=== PATIENT | female | born 1995 ===

== ENCOUNTER 2017-02-04 02:58 | Observation (INO) | payer MEDICAID, OTHER ==
--- NOTE | 2017-02-04 05:10 | ED PDOC ---
HPI: Psych/Substance Abuse Time Seen by Provider: 02/04/17 03:09 Chief Complaint (Nursing): Alcohol Ingestion Chief Complaint (Provider): Alcohol Ingestion ED Caveat: Intoxicated History Per: EMS History/Exam Limitations: no limitations Onset/Duration Of Symptoms: Hrs Current Symptoms Are (Timing): Still Present Modifying Factor(s): Alcohol Additional Complaint(s): 3:09 Deysi Kam is a 21 year old female that was brought into the ED by EMS for public alcohol intoxication. According to EMS, patient was "drinking at bars ," and now states that she wants to go home," and provides no further complaints. Patient unable to provided further medical history secondary to intoxication. Past Medical History Reviewed: Historical Data, Nursing Documentation, Vital Signs Vital Signs: Last Vital Signs Temp 98.2 F 02/04/17 03:11 Pulse 125 H 02/04/17 04:58 Resp 20 02/04/17 04:58 BP 111/73 02/04/17 04:58 Pulse Ox 99 02/04/17 04:58 - Medical History PMH: No Chronic Diseases - Family History Family History: States: Unknown Family Hx - Allergies Allergies/Adverse Reactions: Allergies Allergy/AdvReac Type Severity Reaction Status Date / Time No Known Allergies Allergy Verified 01/06/15 18:36 Review of Systems Review Of Systems: ROS cannot be obtained secondary to pt's inabilty to answer questions. Physical Exam - Reviewed Nursing Documentation Reviewed: Yes Vital Signs Reviewed: Yes - Physical Exam Appears: Positive for: Non-toxic, No Acute Distress (pt. is ocmfortable) Skin: Positive for: Normal Color, Warm, Dry Eye Exam: Positive for: Normal appearance, EOMI, PERRL Cardiovascular/Chest: Positive for: Bradycardia (rate is low). Negative for: Regular Rate, Rhythm, Murmur Respiratory: Positive for: Normal Breath Sounds. Negative for: Respiratory Distress Neurologic/Psych: Positive for: Alert, Oriented, Gait (unsteady) - ECG O2 Sat by Pulse Oximetry: 99 (RA) Pulse Ox Interpretation: Normal Medical Decision Making Medical Decision Makin:57 Initial Impression: Alcohol Ingestion Initial Plan: * 2 mg Ativan IM * Haldol 5 mg IM 4:03 Patient will be placed in ED Obs until reaching clinical sobriety. Patient was given Ativan because she appeared agitated. Scribe Attestation: Documented by Sienna Quan, acting as a scribe for Rossy Mendez MD. Provider Scribe Attestation: All medical record entries made by the Scribe were at my direction and personally dictated by me. I have reviewed the chart and agree that the record accurately reflects my personal performance of the history, physical exam, medical decision making, and the department course for this patient. I have also personally directed, reviewed, and agree with the discharge instructions and disposition. ED OBSERVATION Date of observation admission: 02/04/17 Time of observation admission: 04:03 - Goals of Observation Goals of observation are:: 4:06 Patient will be placed in ED Obs until reaching clinical sobriety. Disposition - Clinical Impression Clinical Impression: Alcohol ingestion - Patient ED Disposition Is Patient to be Admitted: Transfer of Care - Disposition Disposition: Transfer of Care Disposition Time: 07:00 Condition: FAIR Patient Signed Over To: Serge Crawley Handoff Comments: Transfer pending clinical sobriety
--- NOTE | 2017-02-04 07:31 | ED PDOC ---
- ECG O2 Sat by Pulse Oximetry: 99 (RA) Pulse Ox Interpretation: Normal - Progress ED Course And Treament: pt has no signs of clinical intoxication. has no complaints no si/hi/ hallucination. ambulating with a steady gait. advise to abstain from etoh Re-evaluation Time: 11:56 Condition: Improved Medical Decision Making Medical Decision Making: Receivign Sign Out: Patient signed out to me by Dr. Mendez at 0700 pending clinical sobriety. Scribe Attestation: Documented by Sandra Modi acting as a scribe for Serge Crawley MD. Provider Attestation: All medical record entries made by the Scribe were at my direction and personally dictated by me. I have reviewed the chart and agree that the record accurately reflects my personal performance of the history, physical exam, medical decision making, and the department course for this patient. I have also personally directed, reviewed, and agree with the discharge instructions and disposition. Disposition Counseled Patient/Family Regarding: Studies Performed, Diagnosis, Need For Followup, Rx Given - Clinical Impression Clinical Impression: Alcohol ingestion - POA Present On Arrival: None - Disposition Disposition: Routine/Home Disposition Time: 11:57 Condition: GOOD
[2017-02-04 12:15] VITALS: BP 116/75; PULSE 75; RESP 16; TEMP 98; O2SAT 100
== END 2017-02-04 12:16 | disposition home or self-care (01) ==
LOC: H.ER 02:58 → H.EROBSV 04:03
PROVIDERS: ADMIT Emergency Medicine; ATTEND Emergency Medicine
DX: F10.129 Alcohol abuse with intoxication, unspecified (principal); Y90.8 Blood alcohol level of 240 mg/100 ml or more